=== PATIENT | male | born 1950 | race Caucasian/White ===

== ENCOUNTER 2016-03-29 15:43 | Outpatient (CLI) | payer OTHER ==
--- NOTE | 2016-03-29 16:10 | DIAGNOSTIC IMAGING REPORT ---
PROCEDURE: XR HIP 2VW W W/O AP PELVIS-RT INDICATION: JOINT PAIN TECHNIQUE: AP view of the pelvis and hips with lateral view of the right hip. COMPARISON: None. FINDINGS: Right HIP: Osseous structures and joint spaces are normal. PELVIS: Osseous pelvis is normal. IMPRESSION: 1. Negative pelvis and right hip.
== END 2016-03-29 23:00 ==
LOC: XR SRH 15:43
DX: M25.551 Pain in right hip (principal)